=== PATIENT | female | born 1960 | race Caucasian/White ===

== ENCOUNTER 2016-07-06 10:06 | Emergency (ER) | payer OTHER ==
[~2016-07-06] VITALS: Ht 157.5 cm; Wt 90.7 kg
[2016-07-06 12:05] LABS: ABSOLUTE BASOPHIL COUNT 0 /CUMM (0.0-0.2); ABSOLUTE EOSINOPHIL COUNT 0 /CUMM (0.0-0.7); ABSOLUTE LYMPH COUNT 0.7 /CUMM (1.2-3.4); ABSOLUTE MONOCYTE COUNT 0.6 /CUMM (0.10-0.60); BASOPHIL % 0.3 % (0.0-2.0); EOSINOPHIL % 0.5 % (0-5); GRANULOCYTE % 69.1 % (42.2-75.2); HEMATOCRIT 38.9 % (37-47); MEAN CORPUSCULAR HGB CONC 33.8 G/DL (33.0-37.0); MEAN CORPUSCULAR VOLUME 82.7 FL (81.0-99.0); MEAN PLATELET VOLUME 8.4 FL (7.4-10.4); PLATELET COUNT 260 /CUMM (130-400); RBC DISTRIBUTION WIDTH 14.4 % (11.5-14.5); WHITE BLOOD CELL COUNT 4.4 /CUMM (4.8-10.8)
--- NOTE | 2016-07-06 12:08 | ED GI/GU/ABDOMINAL COMPLAINT ---
History of Present Illness General Chief Complaint: Nausea, Vomiting, Diarrhea Stated Complaint: NVD Source: patient, niece Exam Limitations: no limitations Vital Signs & Intake/Output Vital Signs & Intake/Output Vital Signs Date Time Temp Pulse Resp B/P B/P Pulse O2 O2 Flow FiO2 Mean Ox Delivery Rate 07/06 1418 98.9 80 18 140/88 99 Room Air 07/06 1208 99.3 79 18 139/95 99 Room Air 07/06 1012 98.1 97 20 156/88 98 Room Air Allergies Coded Allergies: No Known Allergies (07/06/16) Triage Note: PT C/O UPPER MID ABDOMINAL PAIN WITH N/V/D SINCE YESTERDAY Triage Nurses Notes Reviewed? yes ? N Is pt currently ? No (N) HPI: Patient presents for evaluation of epigastric abdominal tightness along with "a lot" of vomiting and diarrhea since yesterday. Onset of symptoms was abrupt. Patient's epigastric abdominal pain has been moderate to severe and intermittent. There has been no change with eating. The patient denies fever, cold symptoms, chest pain, dyspnea, dysuria, bloody diarrhea, melena, recent travel, suspicious meals or known ill contacts. She likewise denies any prior episodes. Past History Travel History Traveled to [place] past 21 day No Medical History Any Pertinent Medical History? see below for history Cardiovascular: hypertension Surgical History Surgical History: non-contributory Psychosocial History What is your primary language Croatian Tobacco Use: Never used ETOH Use: denies use Illicit Drug Use: denies illicit drug use Family History Hx Contributory? No Review of Systems Review of Systems Constitutional: Reports: no symptoms. EENTM: Reports: no symptoms. Respiratory: Reports: no symptoms. Cardiovascular: Reports: no symptoms. GI: Reports: no symptoms. Genitourinary: Reports: no symptoms. Musculoskeletal: Reports: no symptoms. Skin: Reports: no symptoms. Neurological/Psychological: Reports: no symptoms. Hematologic/Endocrine: Reports: no symptoms. Immunologic/Allergic: Reports: no symptoms. All Other Systems: Reviewed and Negative Physical Exam Physical Exam Gastrointestinal: see below Comments: Gen.: Well-nourished, well-developed, no acute respiratory distress. Head: Normocephalic, atraumatic. Eyes: Normal inspection bilaterally Ears: Normal inspection bilaterally Nose: Normal inspection Throat/mouth : Moist mucosa Neck: Supple, full range of motion, no goiter Heart: Regular rate and rhythm, no murmurs rubs or gallops Lungs: Clear to auscultation bilaterally with normal air entry Chest: Nontender Back: Normal range of motion Abdomen: Soft, epigastric abdominal tenderness without rebound or guarding, nondistended, normal bowel sounds Extremities: Normal range of motion grossly, equal radial pulses, no cyanosis clubbing or edema Neurologic: Cranial nerves grossly intact, speech is clear Skin: warm and dry Psychiatric: Calm, cooperative, no apparent delusions or hallucinations Core Measures ACS in differential dx? No Severe Sepsis Present: No Septic Shock Present: No Progress Differential Diagnosis: diverticulitis, pancreatitis, PUD/GERD, colitis, biliary disease Plan of Care: Orders Procedure Date/time Status Add-on Test (ER Only) 07/06 1206 Active MAGNESIUM 07/06 1145 Complete LIPASE 07/06 1145 Complete COMPREHENSIVE METABOLIC PANEL 07/06 1144 Complete CBC WITHOUT DIFFERENTIAL 07/06 1144 Complete URINALYSIS 07/06 1040 Complete Current Medications Sig/Francesco Start time Last Medication Dose Stop Time Status Admin Hyoscyamine 0.125 MG ONCE ONE 07/06 1445 AC (Levsin) 07/06 1446 Ondansetron HCl 4 MG ONCE ONE 07/06 1445 AC (Zofran) 07/06 1446 Laboratory Tests 07/06/16 1145: Anion Gap 12, Estimated GFR > 60, BUN/Creatinine Ratio 22.0, Glucose 115 H, Calcium 8.9, Magnesium 1.7, Total Bilirubin 0.4, AST 27, ALT 58 H, Alkaline Phosphatase 92, Total Protein 6.2 L, Albumin 3.5, Globulin 2.7, Albumin/ Globulin Ratio 1.3, Lipase 37, CBC w Diff NO MAN DIFF REQ, RBC 4.70, MCV 82.7, MCH 28.0, RDW 14.4, MPV 8.4, Gran % 69.1, Lymphocytes % 15.7 L, Monocytes % 14.4 H, Eosinophils % 0.5, Basophils % 0.3, Absolute Granulocytes 3.0, Absolute Lymphocytes 0.7 L, Absolute Monocytes 0.6, Absolute Eosinophils 0, Absolute Basophils 0, PUBS MCHC 33.8 07/06/16 1040: Urinalysis LIGHT H, Urine Color YEL, Urine Clarity HAZY H, Urine pH 6.0, Ur Specific [place] >= 1.030, Urine Protein 30 H, Urine Ketones NEG, Urine Nitrite NEG, Urine Bilirubin NEG, Urine Urobilinogen 0.2, Ur Leukocyte Esterase NEG, Ur Microscopic SEDIMENT EXAMINED, Urine RBC 1-3, Urine WBC 3-5 H, Ur Epithelial Cells MOD H, Urine Crystals 1+ CA OX H, Urine Bacteria MANY H, Urine Hemoglobin NEG, Urine Glucose NEG Diagnostic Imaging: Discussed w/RAD: CT Scan. Radiology Impression: PATIENT: NEPTALI ESPANA PRESENT AGE: 55 PATIENT ACCOUNT NO: [id number] : 56 LOCATION: [facility] ORDERING PHYSICIAN: CARLITOS HINKLE MD SERVICE DATE: 07/06/16 EXAM TYPE: CAT - CT ABD & PELVIS W IV CONTRAST EXAMINATION: CT ABDOMEN AND PELVIS WITH CONTRAST CLINICAL INFORMATION: Epigastric abdominal pain, vomiting, diarrhea. Presumptive diagnosis: Colitis, diverticulitis, biliary/hepatic disease, gastroenteritis. COMPARISON: None TECHNIQUE: Multidetector volumetric imaging was performed of the abdomen and pelvis before and after the IV administration of 95 mL of Optiray 320 intravenous contrast. Sagittal and coronal reformatted images were obtained on the technologist's workstation. DLP: 770.44 mGy-cm FINDINGS: LUNG BASES: There is mild dependent atelectasis at the lung bases. LIVER, GALLBLADDER, AND BILIARY TREE: There is a 0.8 cm cyst in segment 4 of the liver. There is a 0.6 cm hypodense lesion, likely a cyst, in segment 6 of the right lobe. The liver is otherwise unremarkable. There is no biliary duct dilatation. The gallbladder is unremarkable with no evidence of radiopaque gallstones, gallbladder wall thickening, or obvious pericholecystic inflammatory changes. PANCREAS: Unremarkable. SPLEEN: Unremarkable. ADRENAL GLANDS: Unremarkable. KIDNEYS AND URETERS: The kidneys are normal in size, shape, and attenuation. No hydronephrosis, hydroureter, or calculi seen. No perinephric stranding. BLADDER: Unremarkable. GASTROINTESTINAL TRACT: The colon and appendix are unremarkable. There are numerous borderline to mildly dilated loops of fluid and air-filled small bowel. There is a relative transition in the distal ileum, with a nondilated segment of distal ileum. There is a suggestion of mild wall thickening of the terminal ileum. The findings are suspicious for a low-grade or early small-bowel obstruction. ABDOMINAL WALL: No significant hernia is appreciated. LYMPH NODES: Normal. VASCULAR: Unremarkable. PELVIC VISCERA: There is a right ovarian cyst measuring 3.5 cm. The pelvic structures are otherwise unremarkable. OSSEOUS STRUCTURES: There is a mild left convex lumbar scoliosis. There are mild degenerative changes in the spine. There are [id number] degenerative changes in the symphysis pubis with subchondral sclerosis, particularly in the right pubic bone. There are mild degenerative changes of the sacroiliac joints. IMPRESSION: 1. Findings, as described above, suspicious for a low-grade or early small-bowel obstruction. There may be mild thickening of the wall of the nondilated terminal ileum but this is not definitive. 2. Small liver cysts. 3. Right ovarian cyst measuring 3.5 cm. DICTATED BY: CHALO GARVIN MD DATE/TIME DICTATED:07/06/161323 MACHINE PRESSER:SUAD DATE/TIME TRANSCRIBED:07/06/161323 CONFIDENTIAL, DO NOT COPY WITHOUT APPROPRIATE AUTHORIZATION. <Electronically signed in Other Vendor System> SIGNED BY: CHALO GARVIN MD 07/06/16 1404 Initial ED EKG: none Comments: 07/06/2016 2:35:09 PM I have updated NEPTALI on her test results with her consent in front of family. I have ordered Zofran and Levsin for abdominal pain and mild nausea. Apparently the patient's grandchildren were ill with similar symptoms last week. I suspect viral gastroenteritis, plan treat symptomatically. Departure Departure Disposition: HOME OR SELF CARE Condition: Stable Clinical Impression Primary Impression: GE (gastroenteritis) Referrals: LAWRENCE QUIÑONES MD, I (PCP/Family) Additional Instructions: Zofran as needed for nausea or vomiting, Levsin as needed for abdominal pain. Clear liquid diet including Gatorade or Powerade for the electrolytes. Follow- up with your primary care doctor for reevaluation tomorrow. Return if any concerns or sudden worsening. Please note that there might be incidental findings in your evaluation that are unrelated to the current emergency department visit. Please notify your primary care doctor about this emergency department visit in order to obtain and review all of the testing performed so that these incidental findings can be monitored as needed. If you had an x-ray performed, please understand that some fractures may not be seen on the initial set of x-rays. If your symptoms persist you might need a repeat set of x-rays to check for such a fracture. If you had a laceration evaluated, please understand that foreign bodies such as glass or wood may not be visible to the naked eye or on plain x-rays. If the wound becomes red, swollen, increasingly more painful or if there is any drainage from the wound, please have it reevaluated by a physician for the possibility of a retained foreign body. Thank you for choosing the [facility] for your care. It was a pleasure to serve you today. Carlitos Hinkle M.D. [facility] Departure Forms: Customer Survey General Discharge Information Prescriptions: Current Visit Scripts Ondansetron (Zofran Odt) 1 TAB SL Q6P PRN NAUSEA/VOMITING #10 TAB Hyoscyamine (Levsin) 1-2 TAB PO Q6P PRN ABDOMINAL CRAMPS #20 TAB
[2016-07-06] MEDS ORDERED: HYDROCHLOROTH12.5 M3 PO (12:22)
--- NOTE | 2016-07-06 14:04 | CT SCAN REPORT ---
EXAMINATION: CT ABDOMEN AND PELVIS WITH CONTRAST CLINICAL INFORMATION: Epigastric abdominal pain, vomiting, diarrhea. Presumptive diagnosis: Colitis, diverticulitis, biliary/hepatic disease, gastroenteritis. COMPARISON: None TECHNIQUE: Multidetector volumetric imaging was performed of the abdomen and pelvis before and after the IV administration of 95 mL of Optiray 320 intravenous contrast. Sagittal and coronal reformatted images were obtained on the technologist's workstation. DLP: 770.44 mGy-cm FINDINGS: LUNG BASES: There is mild dependent atelectasis at the lung bases. LIVER, GALLBLADDER, AND BILIARY TREE: There is a 0.8 cm cyst in segment 4 of the liver. There is a 0.6 cm hypodense lesion, likely a cyst, in segment 6 of the right lobe. The liver is otherwise unremarkable. There is no biliary duct dilatation. The gallbladder is unremarkable with no evidence of radiopaque gallstones, gallbladder wall thickening, or obvious pericholecystic inflammatory changes. PANCREAS: Unremarkable. SPLEEN: Unremarkable. ADRENAL GLANDS: Unremarkable. KIDNEYS AND URETERS: The kidneys are normal in size, shape, and attenuation. No hydronephrosis, hydroureter, or calculi seen. No perinephric stranding. BLADDER: Unremarkable. GASTROINTESTINAL TRACT: The colon and appendix are unremarkable. There are numerous borderline to mildly dilated loops of fluid and air-filled small bowel. There is a relative transition in the distal ileum, with a nondilated segment of distal ileum. There is a suggestion of mild wall thickening of the terminal ileum. The findings are suspicious for a low-grade or early small-bowel obstruction. ABDOMINAL WALL: No significant hernia is appreciated. LYMPH NODES: Normal. VASCULAR: Unremarkable. PELVIC VISCERA: There is a right ovarian cyst measuring 3.5 cm. The pelvic structures are otherwise unremarkable. OSSEOUS STRUCTURES: There is a mild left convex lumbar scoliosis. There are mild degenerative changes in the spine. There are [id number] degenerative changes in the symphysis pubis with subchondral sclerosis, particularly in the right pubic bone. There are mild degenerative changes of the sacroiliac joints. IMPRESSION: 1. Findings, as described above, suspicious for a low-grade or early small-bowel obstruction. There may be mild thickening of the wall of the nondilated terminal ileum but this is not definitive. 2. Small liver cysts. 3. Right ovarian cyst measuring 3.5 cm.
[2016-07-06 14:18] VITALS: BP 140/88
[2016-07-06] MEDS ORDERED: ZOFRAN ODT4 M1 SL (14:37)
[2016-07-06] MEDS ORDERED: LEVSIN0.125 M1 PO (14:37)
== END 2016-07-06 14:49 ==
LOC: ERH 10:06
PROVIDERS: Emergency Medicine
DX: K52.9 Noninfective gastroenteritis and colitis, unspecified (principal)
CPT/HCPCS: 74177; 81001; 96360; J3101